=== PATIENT | male | born 1970 | race Caucasian/White ===

== ENCOUNTER 2017-02-03 04:06 | Emergency (ER) | payer MEDICAID, SELFPAY ==
[~2017-02-03] VITALS: Ht 175.3 cm; Wt 136.7 kg
[2017-02-03 04:09] VITALS: BP 134/85
[2017-02-03] MEDS ORDERED: HYDR12.53 PO (04:59)
[2017-02-03] MEDS ORDERED: RANI-276 PO (05:00)
[2017-02-03] MEDS ORDERED: ALLO300T PO (05:01)
[2017-02-03] MEDS ORDERED: LORA1TAB35 PO (05:01)
[2017-02-03] MEDS ORDERED: CYCL-259 PO (05:03)
[2017-02-03] MEDS ORDERED: FLUT1DIS3 INH (05:05)
[2017-02-03] MEDS ORDERED: BACITRACIN ZINC OINT 500U/GM, 0.9 GM ONE ×3 (05:26→05:27)
[2017-02-03] MEDS ORDERED: BACITRACIN ZINC OINT 500U/GM, 0.9 GM TP ONE (05:30)
== END 2017-02-03 06:31 | disposition home or self-care (01) ==
LOC: ED 05:39
DX: L03.317 Cellulitis of buttock (principal); L03.113 Cellulitis of right upper limb; L03.116 Cellulitis of left lower limb; L03.115 Cellulitis of right lower limb; L03.114 Cellulitis of left upper limb; J44.9 Chronic obstructive pulmonary disease, unspecified; G47.30 Sleep apnea, unspecified
CPT/HCPCS: 99283

== ENCOUNTER 2021-05-09 19:29 | Emergency (ER) | payer MEDICAID, SELFPAY ==
[~2021-05-09] VITALS: Ht 170.2 cm; Wt 189.8 kg
[~2021-05-09 19:29] MED LIST: ALLO300T PO; CYCL10TA2 PO; FLUT1DIS3 INH; HYDR12.517 PO; LORA1TAB35 PO; RANI-460 PO
[2021-05-09] MEDS ORDERED: LIDOCAINE-MPF 1%, 5ML ONE (20:29)
[2021-05-09] MEDS ORDERED: LIDOCAINE 1%, 10ML INFIL ONE (20:30)
[2021-05-09] MEDS ORDERED: HYDROcodone/APAP 10/325 MG TABLET PO ONE (23:00)
[2021-05-09] MEDS ORDERED: HYDROcodone/APAP 10/325 MG TABLET ONE (23:05)
[2021-05-09] MEDS ORDERED: NEOSPORIN OINT. PKT 1 PACKET ONE (23:28)
[2021-05-09 23:34] VITALS: BP 141/87
--- NOTE | 2021-05-09 23:35 | NUR ---
DESKTOP SUPPORT SPECIALIST: RING REMOVED, WOUND CLEANED AND DRESSED, PT MEDICATED PER MAR FOR PAIN, RIGHTS OBSERVED. Patient given discharge instructions and they have confirmed that they understand the instructions. Patient ambulatory with steady gait. NAD, all questions answered appropriately, denies additional needs at this time. No personal belongings left in room after discharge. CONFIRMED HE WILL FOLLOW UP WITH ORTHO AND DEMONSTRATED ABILITY TO CARE FOR FINGER.
== END 2021-05-09 23:37 | disposition home or self-care (01) ==
LOC: ED 23:00
DX: M79.645 Pain in left finger(s) (principal); F17.210 Nicotine dependence, cigarettes, uncomplicated; Z72.9 Problem related to lifestyle, unspecified; J44.9 Chronic obstructive pulmonary disease, unspecified
CPT/HCPCS: 99406